=== PATIENT | female | born 1960 | race African-American/Black ===

== ENCOUNTER 2020-07-25 13:49 | Emergency (ER) | payer SELFPAY ==
[~2020-07-25] VITALS: Ht 165.1 cm; Wt 104.9 kg
--- NOTE | 2020-07-25 15:01 | NUR ---
wool tamper: pt from lobby to room 2
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
[2020-07-25] MEDS ORDERED: OXYcodone/APAP 5/325MG TABLET ONE (15:57)
[2020-07-25] MEDS ORDERED: OXYcodone/APAP 5/325MG TABLET PO ONE (16:00)
--- NOTE | 2020-07-25 16:00 | NUR ---
Pt medicated per MAR, denies other needs.
--- NOTE | 2020-07-25 16:37 | NUR ---
Pt talking on her phone, states "I feel much better." Pt denies other needs.
[2020-07-25 16:58] VITALS: BP 134/78
== END 2020-07-25 17:23 | disposition home or self-care (01) ==
LOC: EDBD 13:49 → ED 16:57
DX: R07.89 Other chest pain (principal); Z88.0 Allergy status to penicillin; Z88.8 Allergy status to other drugs, medicaments and biological substances; Z87.891 Personal history of nicotine dependence; Z85.9 Personal history of malignant neoplasm, unspecified
CPT/HCPCS: 99283